=== PATIENT | male | born 1995 | race Caucasian/White ===

== ENCOUNTER 2018-12-17 20:11 | Emergency (ER) | payer OTHER ==
[~2018-12-17] VITALS: Ht 170.2 cm; Wt 66.3 kg
[2018-12-17 20:13] VITALS: BP 119/81
[2018-12-17] MEDS ORDERED: DIPH,PERTUSS(ACELL),TET VAC/PF 0.5 ML IM-VACC ONE ×2 (20:55→21:00)
[2018-12-17] MEDS ORDERED: NEOSPORIN OINT. PKT 1 PACKET ONE (21:04)
== END 2018-12-17 21:23 | disposition home or self-care (01) ==
LOC: ED 21:13
DX: S60.512A Abrasion of left hand, initial encounter (principal); S60.511A Abrasion of right hand, initial encounter; G89.11 Acute pain due to trauma; M54.9 Dorsalgia, unspecified; V49.88XA Car occupant (driver) (passenger) injured in other specified transport accidents, initial encounter; Y93.89 Activity, other specified; Y92.89 Other specified places as the place of occurrence of the external cause; Y99.8 Other external cause status
CPT/HCPCS: 90471; 90715; 99283